=== PATIENT | male | born 1960 | race African-American/Black ===

== ENCOUNTER 2019-09-13 12:48 | Emergency (ER) | payer MEDICARE, MEDICAID, SELFPAY ==
[2019-09-13 13:03] VITALS: BP 118/79; PULSE 97; RESP 16; TEMP 36.4; O2SAT 99
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
== END 2019-09-13 13:57 | disposition home or self-care (01) ==
PROVIDERS: Emergency Provider Nurse Practitioner Family
DX: J00 Acute nasopharyngitis [common cold] (principal); J01.90 Acute sinusitis, unspecified; F17.210 Nicotine dependence, cigarettes, uncomplicated; E78.00 Pure hypercholesterolemia, unspecified; I10 Essential (primary) hypertension
CPT/HCPCS: 99213; G0463

== ENCOUNTER 2019-10-01 08:58 | Emergency (ER) | payer MEDICARE, MEDICAID, SELFPAY ==
[2019-10-01 09:15] LABS: Glucose Point of Care 104 (65-105)
[2019-10-01 09:16] VITALS: BP 115/82; PULSE 88; RESP 18; TEMP 36.4; O2SAT 98
[2019-10-01 09:36] LABS: Basophils Percent Auto 0.5 % (0.2-1.2); Eosinophils Absolute Auto 0.1 K/mm3 (0-0.3); Hematocrit 41.7 % (42.0-52.0); Hemoglobin 13.7 g/dL (14.0-18.0); Immature Granulocyte Absolute 0.02 K/mm3 (0.00-0.031); Immature Granulocyte Percent A 0.3 % (0-0.5); Lymphocytes Absolute Auto 2.93 K/mm3 (0.9-3.2); Mean Corpuscular HGB Conc 32.9 g/dl (32-36); Mean Corpuscular Hemoglobin 27.9 pg (26-34); Mean Corpuscular Volume 84.9 fl (80-100); Mean Platelet Volume 10.5 fl (7.4-10.4); Monocytes Absolute Auto 0.5 K/mm3 (0.1-0.6); Monocytes Percent Auto 6.2 % (2.6-8.5); Neutrophils Absolute Auto 4.4 K/mm3 (1.3-6.7); Platelet Count Result 222 k/mm3 (150-375); Red Blood Count 4.91 M/mm3 (4.6-6.20); Red Cell Distribution Width 13.4 % (11.5-14.5); White Blood Count 7.9 K/mm3 (4.5-10.0)
[2019-10-01 09:46] LABS: Blood Urea Nitrogen 12 mg/dL (9-20); Carbon Dioxide 23 mmol/L (22-30); Chloride 109 mmol/L (98-107); Estimated Glomerular Filt Rate > 60; Glucose 106 mg/dL (75-110); Potassium 3.7 mmol/L (3.4-5.0); Sodium 140 mmol/L (137-145)
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
== END 2019-10-01 10:23 | disposition home or self-care (01) ==
PROVIDERS: Emergency Medicine Emergency Medical Services; Emergency Provider Emergency Medicine
DX: R68.2 Dry mouth, unspecified (principal); R73.03 Prediabetes; E78.00 Pure hypercholesterolemia, unspecified; I10 Essential (primary) hypertension; F17.210 Nicotine dependence, cigarettes, uncomplicated
CPT/HCPCS: 36415; 80048; 82948; 85025; 99283

== ENCOUNTER 2019-11-18 11:23 | Emergency (ER) | payer MEDICARE, MEDICAID, SELFPAY ==
[2019-11-18 11:33] VITALS: BP 128/81; PULSE 88; RESP 16; TEMP 36.3; O2SAT 98
--- NOTE | 2019-11-18 12:10 | ED.GENADULT ---
HPI - General Adult General Chief complaint: Unspecified Stated complaint: dry mouth History of Present Illness HPI narrative: This is a 59-year-old male comes in complaining of having a dry throat patient states that he is eating candy candy tastes like hair in his throat he says he has been drinking plenty of water plenty of coffee in energy drinks. Related Data Home Medications Medication Instructions Recorded Confirmed Hctz 12.5 mg DAILY 09/13/19 11/18/19 benztropine 0.5 mg PO BID 09/13/19 11/18/19 cyclobenzaprine 10 mg PO TID PRN 09/13/19 11/18/19 fluoxetine 10 mg PO BID 09/13/19 11/18/19 gabapentin 800 mg PO TID 09/13/19 11/18/19 lurasidone [Latuda] 40 mg PO DAILY 09/13/19 11/18/19 pantoprazole 40 mg PO BID 09/13/19 11/18/19 potassium chloride 20 meq PO DAILY 09/13/19 11/18/19 simvastatin 40 mg PO HS 09/13/19 11/18/19 topiramate 100 mg PO DAILY 09/13/19 11/18/19 Allergies Allergy/AdvReac Type Severity Reaction Status Date / Time No Known Allergies Allergy Unknown Verified 11/18/19 11:25 Review of Systems Review of Systems: Narrative: CONSTITUTIONAL: Denies fever, chills, or sweats. EYES: Denies visual changes, redness, or discharge. ENT: Denies rhinorrhea, congestion, sore throat, or otalgia. Dry throat slight pharyngeal erythema tonsil stone noted CARDIOVASCULAR:Denies chest pain, palpitations, or edema. RESPIRATORY: Denies cough or dyspnea. GASTROINTESTINAL: Denies abdominal pain, nausea, vomiting, or diarrhea. GENITOURINARY: Denies dysuria or hematuria. SKIN:[Denies rash or itching. MUSCULOSKELETAL:Denies back pain, joint pain, or myalgia. NEUROLOGIC: Denies headache, numbness, or weakness. PSYCHIATRIC:Denies anxiety or depression [facility], [facility] Social History Social History Smoking packs per day: 1 Smoking cigarettes per day: 20.0 Years smoked: 40 Smoking pack-years: 40.00 Smoking status: Current every day smoker Tobacco type: cigarettes Second hand tobacco smoke exposure: Yes Alcohol intake: former Substance use: former Other substance usage details: Polysubstance Additional living arrangements comments: [place] Additional occupation/education comments: [place] Gender identity (if verbalized by the patient): Male Comments At time as signature, I have reviewed and agree with nursing past medical, social, surgical and family history. Please see nursing chart for further information. There is no relevant family history pertinent to the presenting complaint. Exam Narrative: Exam Narrative: GENERAL:Well-appearing, well-nourished, and in no acute distress. HEAD:Normocephalic, atraumatic. EYES: PERRLA and EOMI. ENT: Nares clear, no rhinorrhea or epistaxis. Mucous membranes moist. Pharyngeal erythema with tonsillar stone on right side NECK: Supple. CHEST: Clear to auscultation. No respiratory distress. HEART: Regular rate and rhythm. No murmur heard. Normal peripheral pulses. ABDOMEN: Soft, nontender, nondistended, normal active bowel sounds. EXTREMITIES: Normal range of motion. No edema. SKIN: Warm, dry, no rash. NEURO: No focal deficits. Alert and oriented x3. Course Vital Signs Vital signs: Vital Signs Temperature 97.4 F L 11/18/19 11:33 Pulse Rate 88 11/18/19 11:33 Respiratory Rate 16 11/18/19 11:33 Blood Pressure 128/81 11/18/19 11:33 Pulse Oximetry 98 11/18/19 11:33 Temperature 97.4 F L 11/18/19 11:33 Pulse Rate 88 11/18/19 11:33 Respiratory Rate 16 11/18/19 11:33 Blood Pressure 128/81 11/18/19 11:33 Pulse Oximetry 98 11/18/19 11:33 Medical Decision Making Vital Signs Vital Signs: Vital Signs Temperature 97.4 F L 11/18/19 11:33 Pulse Rate 88 11/18/19 11:33 Respiratory Rate 16 11/18/19 11:33 Blood Pressure 128/81 11/18/19 11:33 Pulse Oximetry 98 11/18/19 11:33 Temperature 97.4 F L 11/18/19 11:33 Pulse Rate 88 11/18/19 11:33 Respiratory Ra
== END 2019-11-18 12:32 | disposition home or self-care (01) ==
PROVIDERS: Emergency Provider Nurse Practitioner Family
DX: R68.2 Dry mouth, unspecified (principal); F17.210 Nicotine dependence, cigarettes, uncomplicated
CPT/HCPCS: 99213; G0463

== ENCOUNTER 2019-12-30 16:02 | Emergency (ER) | payer MEDICARE, MEDICAID, SELFPAY ==
--- NOTE | ~2019-12-30 | XR_ITS ---
XR foot LT min 3V 12/30/2019 16:24 Indication: Left foot pain after trauma Procedure: 4 views left foot Comparison: No prior studies for comparison. 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 Lisfranc joint intact. N o acute fracture or traumatic malalignment. No focal soft tissue abnormality. No radiopaque foreign b odies. Impression: 1: No acute bone or joint abnormality. Reviewed, dictated and finalized at location A. Impression: 1: No acute bone or joint abnormality.
[2019-12-30 16:05] VITALS: BP 116/75; PULSE 98; RESP 16; TEMP 37; O2SAT 97
--- NOTE | 2019-12-30 16:48 | ED.GENADULT ---
HPI - General Adult General Chief complaint: Extremity Injury, Lower Stated complaint: left foot pain Time Seen by Provider: 12/30/19 16:11 Source: patient Mode of arrival: ambulatory Limitations: no limitations History of Present Illness HPI narrative: Patient is a 59-year-old male who presents with left midfoot pain after rolling the foot while walking when he missed stepped patient notes aching pain worse with weightbearing and activity. Patient denies other injuries or complaints. Patient has not had anything for pain patient presents per private vehicle in no distress. Related Data Home Medications Medication Instructions Recorded Confirmed Hctz 12.5 mg DAILY 09/13/19 11/18/19 benztropine 0.5 mg PO BID 09/13/19 11/18/19 cyclobenzaprine 10 mg PO TID PRN 09/13/19 11/18/19 fluoxetine 10 mg PO BID 09/13/19 11/18/19 gabapentin 800 mg PO TID 09/13/19 11/18/19 lurasidone [Latuda] 40 mg PO DAILY 09/13/19 11/18/19 pantoprazole 40 mg PO BID 09/13/19 11/18/19 potassium chloride 20 meq PO DAILY 09/13/19 11/18/19 simvastatin 40 mg PO HS 09/13/19 11/18/19 topiramate 100 mg PO DAILY 09/13/19 11/18/19 Allergies Allergy/AdvReac Type Severity Reaction Status Date / Time No Known Allergies Allergy Unknown Verified 12/30/19 16:08 Review of Systems Review of Systems: Narrative: CONSTITUTIONAL: Denies fever, chills, or sweats. SKIN: Denies bruising or swelling MUSCULOSKELETAL: Denies joint pain, or myalgia. NEUROLOGIC: Denies numbness, or weakness. . PMFSH Social History Social History Smoking packs per day: 1 Smoking cigarettes per day: 20.0 Years smoked: 40 Smoking pack-years: 40.00 Smoking status: Current every day smoker Tobacco type: cigarettes Second hand tobacco smoke exposure: Yes Alcohol intake: former Substance use: former Other substance usage details: Polysubstance Additional living arrangements comments: [place] Additional occupation/education comments: [place] Gender identity (if verbalized by the patient): Male Exam Narrative: Exam Narrative: GENERAL: Well-appearing, well-nourished, and in no acute distress. HEAD: Normocephalic, atraumatic. EYES: PERRLA and EOMI. ENT: Nares clear, no rhinorrhea or epistaxis. Mucous membranes moist. EXTREMITIES: Normal range of motion. No edema.tenderness of the left forefott and midfoot no deformity noted SKIN: Warm, dry, no rash. NEURO: No focal deficits. Alert and oriented x3. Neurovascularly intact PSYCH: Normal mood and affect. Course Course Emergency Course: patient in the room aware of case findings and treatment plan Vital Signs Vital signs: Vital Signs Temperature 98.6 F 12/30/19 16:05 Pulse Rate 98 12/30/19 16:05 Respiratory Rate 16 12/30/19 16:05 Blood Pressure 116/75 12/30/19 16:05 Pulse Oximetry 97 12/30/19 16:05 Temperature 98.6 F 12/30/19 16:05 Pulse Rate 98 12/30/19 16:05 Respiratory Rate 16 12/30/19 16:05 Blood Pressure 116/75 12/30/19 16:05 Pulse Oximetry 97 12/30/19 16:05 Medical Decision Making MDM Narrative Medical decision making narrative: Patients injury or pain is consistent with musculoskeletal etiology. No signs of neurological or vascular compromise on exam. Compartments and tisues are soft without signs of compartment syndrome. Pain is felt appropriate for further evaluation on an outpatient basis. Vital Signs Vital Signs: Vital Signs Temperature 98.6 F 12/30/19 16:05 Pulse Rate 98 12/30/19 16:05 Respiratory Rate 16 12/30/19 16:05 Blood Pressure 116/75 12/30/19 16:05 Pulse Oximetry 97 12/30/19 16:05 Temperature 98.6 F 12/30/19 16:05 Pulse Rate 98 12/30/19 16:05 Respiratory Rate 16 12/30/19 16:05 Blood Pressure 116/75 12/30/19 16:05 Pulse Oximetry 97 12/30/19 16:05 Imaging Data Radiologist's impression: ITS Impressions Foot X-Ray 12/30/19 16:26 Impression:
[2019-12-30] MEDS: KETOROLAC (*BKC) 60 MG/2 ML VIAL 30 MG IM (17:34)
== END 2019-12-30 17:35 | disposition home or self-care (01) ==
LOC: ANHED 16:54
PROVIDERS: Emergency Provider Emergency Medicine
DX: S96.912A Strain of unspecified muscle and tendon at ankle and foot level, left foot, initial encounter (principal); F17.210 Nicotine dependence, cigarettes, uncomplicated; X50.9XXA Other and unspecified overexertion or strenuous movements or postures, initial encounter
CPT/HCPCS: 73630; 96372; 99283; J1885

== ENCOUNTER 2020-06-15 09:57 | Emergency (ER) | payer MEDICARE, MEDICAID, SELFPAY ==
[2020-06-15 10:07] VITALS: BP 119/74; PULSE 66; RESP 16; TEMP 36.6; O2SAT 100
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
== END 2020-06-15 10:29 | disposition home or self-care (01) ==
PROVIDERS: Emergency Provider Nurse Practitioner
DX: K02.9 Dental caries, unspecified (principal); Z87.891 Personal history of nicotine dependence; E78.00 Pure hypercholesterolemia, unspecified; I10 Essential (primary) hypertension
CPT/HCPCS: 99213; G0463

== ENCOUNTER 2020-07-06 16:03 | Emergency (ER) | payer MEDICARE, MEDICAID, SELFPAY ==
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
[2020-07-06 16:13] VITALS: BP 115/74; PULSE 78; RESP 16; TEMP 36.4; O2SAT 100
== END 2020-07-06 16:25 | disposition home or self-care (01) ==
PROVIDERS: Emergency Provider Nurse Practitioner Family
DX: K08.89 Other specified disorders of teeth and supporting structures (principal); Z87.891 Personal history of nicotine dependence; E78.00 Pure hypercholesterolemia, unspecified; I10 Essential (primary) hypertension
CPT/HCPCS: 99211; G0463

== ENCOUNTER 2020-11-07 18:36 | Emergency (ER) | payer MEDICARE, MEDICAID, SELFPAY ==
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
[2020-11-07 19:16] VITALS: BP 121/80; PULSE 120; RESP 18; TEMP 36.7; O2SAT 100
== END 2020-11-07 19:20 | disposition home or self-care (01) ==
PROVIDERS: Emergency Provider Nurse Practitioner
DX: L02.01 Cutaneous abscess of face (principal); Z87.891 Personal history of nicotine dependence; E78.00 Pure hypercholesterolemia, unspecified; I10 Essential (primary) hypertension
CPT/HCPCS: 99213; G0463

== ENCOUNTER 2021-01-06 13:31 | Emergency (ER) | payer MEDICARE, MEDICAID, SELFPAY ==
[2021-01-06 13:43] VITALS: BP 112/73; PULSE 97; RESP 16; TEMP 36.8; O2SAT 99
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
== END 2021-01-06 14:13 | disposition home or self-care (01) ==
PROVIDERS: Emergency Provider Emergency Medicine
DX: J02.9 Acute pharyngitis, unspecified (principal); Z87.891 Personal history of nicotine dependence; E78.00 Pure hypercholesterolemia, unspecified; I10 Essential (primary) hypertension
CPT/HCPCS: 99213; G0463

== ENCOUNTER 2021-05-29 13:43 | Emergency (ER) | payer MEDICARE, MEDICAID, SELFPAY ==
--- NOTE | ~2021-05-29 | XR_ITS ---
EXAMINATION: XR chest 2V DATE: 05/29/2021 14:18 INDICATION: Cough and congestion TECHNIQUE: PA and lateral views of the chest are obtained. COMPARISON: None available FINDINGS: The lungs are free of acute opacities. There is no pleural effusion or pneumothorax. The ca rdiomediastinal silhouette is normal. There is moderate thoracic spondylosis. IMPRESSION: 1. No acute cardiopulmonary abnormality. Reviewed, dictated and finalized at location A.
--- NOTE | ~2021-05-29 | XR_ITS ---
EXAMINATION: XR sinus <3V INDICATION: Sinus congestion TECHNIQUE: Two views of the paranasal sinuses are obtained. COMPARISON: None available FINDINGS: There is normal pneumatization the paranasal sinuses. There appears to be partial opacifica tion of the facial bones are unremarkable. The visualized portions of the cervical spine demonstrate mild spondylosis. IMPRESSION: 1. Possible left maxillary sinus disease. There is high clinical concern for significant sinusitis, f urther evaluation by sinus CT would be recommended. Reviewed, dictated and finalized at location A. IMPRESSION: 1. Possible left maxillary sinus disease. There is high clinical concern for si gnificant sinusitis, further evaluation by sinus CT would be recommended.
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
[2021-05-29 13:53] VITALS: BP 137/84; PULSE 94; RESP 18; TEMP 36.4; O2SAT 99
[2021-05-29 14:10] VITALS: BP 137/84; PULSE 94; RESP 18; TEMP 36.4; O2SAT 99
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
== END 2021-05-29 14:45 | disposition home or self-care (01) ==
PROVIDERS: Emergency Provider Emergency Medicine
DX: J06.9 Acute upper respiratory infection, unspecified (principal); J34.9 Unspecified disorder of nose and nasal sinuses; Z87.891 Personal history of nicotine dependence; E78.00 Pure hypercholesterolemia, unspecified; I10 Essential (primary) hypertension
CPT/HCPCS: 70210; 71046; 99214; G0463

== ENCOUNTER 2021-06-20 13:50 | Emergency (ER) | payer MEDICARE, MEDICAID, SELFPAY ==
[2021-06-20 14:02] VITALS: BP 107/82; PULSE 66; RESP 18; TEMP 36.9; O2SAT 100
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
== END 2021-06-20 14:55 | disposition home or self-care (01) ==
PROVIDERS: Emergency Provider Registered Nurse
DX: M54.2 Cervicalgia (principal); H65.01 Acute serous otitis media, right ear; Z87.891 Personal history of nicotine dependence; E78.00 Pure hypercholesterolemia, unspecified; I10 Essential (primary) hypertension
CPT/HCPCS: 99213; G0463

== ENCOUNTER 2022-02-10 14:07 | Outpatient (CLI) | payer MEDICARE, MEDICAID, SELFPAY ==
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
--- NOTE | ~2022-02-10 | XR_ITS ---
XR knee RT min 4V 02/10/2022 14:58 Indication: Right knee pain Procedure: 2 views right knee Comparison: No prior studies for comparison. Findings: There is mild osteoarthritis of the right knee. No fracture, subluxation or dislocation. No significant joint effusion. No foreign bodies. Impression: 1: Mild osteoarthritis of the right knee. Reviewed, dictated and finalized at location A. Impression: 1: Mild osteoarthritis of the right knee.
--- NOTE | ~2022-02-10 | XR_ITS ---
XR cervical spine 4-5V 02/10/2022 14:58 Indication: Cervicalgia. Spondylosis. Procedure: 5 views of the cervical spine Comparison: No prior studies for comparison. Findings: There is degenerative disc disease with disc narrowing at C3-4 through C6-7. No fracture or traumatic malalignment. No prevertebral soft tissue swelling. Odontoid process within normal limits. Lung apices are normal. Lateral masses are normally aligned. Impression: 1: Mild-moderate cervical spondylosis. Reviewed, dictated and finalized at location A. Impression: 1: Mild-moderate cervical spondylosis.
== END 2022-02-10 14:08 | disposition home or self-care (01) ==
PROVIDERS: PCP Internal Medicine; Visit Provider Internal Medicine
DX: M54.42 Lumbago with sciatica, left side (principal); M19.90 Unspecified osteoarthritis, unspecified site; G56.22 Lesion of ulnar nerve, left upper limb; M47.896 Other spondylosis, lumbar region; M47.892 Other spondylosis, cervical region; M17.11 Unilateral primary osteoarthritis, right knee
CPT/HCPCS: 72050; 72110; 73564

== ENCOUNTER 2022-06-22 17:22 | Emergency (ER) | payer MEDICARE, MEDICAID, SELFPAY ==
[2022-06-22 18:20] VITALS: BP 105/70; PULSE 74; RESP 16; TEMP 36.6; O2SAT 100
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
== END 2022-06-22 18:50 | disposition home or self-care (01) ==
PROVIDERS: Emergency Provider Nurse Practitioner; PCP Internal Medicine
DX: S00.412A Abrasion of left ear, initial encounter (principal); L08.9 Local infection of the skin and subcutaneous tissue, unspecified; K05.10 Chronic gingivitis, plaque induced; R73.03 Prediabetes; E78.00 Pure hypercholesterolemia, unspecified; I10 Essential (primary) hypertension; Z87.891 Personal history of nicotine dependence
CPT/HCPCS: 99213; G0463